=== PATIENT | male | born 1995 | race Native Hawaiian/Other Pacific Islander ===

== ENCOUNTER 2021-11-13 22:40 | Emergency (ER) | payer OTHER ==
[~2021-11-13] VITALS: Ht 180.3 cm; Wt 97.5 kg
[2021-11-14] VITALS: BP 123/64; TEMP 97.9
== END 2021-11-14 | disposition home or self-care (01) ==
LOC: ED 22:40
DX: J06.9 Acute upper respiratory infection, unspecified (principal); U07.1 COVID-19; F17.210 Nicotine dependence, cigarettes, uncomplicated
CPT/HCPCS: 87502; 87635; 87651; 99283; U0003

== ENCOUNTER 2023-05-07 22:17 | Emergency (ER) | payer OTHER ==
[~2023-05-07] VITALS: Ht 180.3 cm; Wt 83.9 kg
[2023-05-07 22:25] VITALS: BP 116/73; TEMP 97.2
== END 2023-05-07 23:24 | disposition home or self-care (01) ==
LOC: ED 22:17
DX: J02.0 Streptococcal pharyngitis (principal); R50.9 Fever, unspecified
CPT/HCPCS: 87651; 99283